=== PATIENT | male | born 1975 | race African-American/Black ===

== ENCOUNTER 2020-05-19 10:14 | Emergency (ER) | payer SELFPAY ==
[~2020-05-19] VITALS: Ht 170 cm; Wt 82.0 kg
[2020-05-19] MEDS ORDERED: NAPR-1071 PO (11:55)
--- NOTE | 2020-05-19 11:55 | ED Upper Extremity ---
General Chief Complaint: Upper Extremity Stated Complaint: R SHOULDER PAIND Nursing Triage Note: PT STATES APPROX 1.5 MONTHS AGO HE WAS PLAYING FOOTBALL. STATES "GOING IN TO TACKLE AND DUDE SHIFTED AND I TOOK A POLE TO THE SHOULDER." PT STATES FULL RANGE OF MOTION OF ARM IS OK JUST HURTS TO MOVE IT AND TURN MY HEAD SOME. Nursing Sepsis Screen: No Definite Risk Source: patient Exam Limitations: no limitations History of Present Illness Date Seen by Provider: May 19, 2020 Time Seen by Provider: 11:51 Initial Comments To ER with c/o right shoulder pain x1.5 months. Has full range of motion. [place] after a football incident when he hit his arm on a pole. Onset: just prior to arrival Severity: moderate Pain/Injury Location: right shoulder Method of Injury: fell Modifying Factors: Worse With Movement Allergies and Home Medications Allergies Coded Allergies: No Known Drug Allergies (Unverified , 05/19/20) Patient Home Medication List Home Medication List Reviewed: Yes Review of Systems Constitutional: see HPI EENTM: see HPI Respiratory: no symptoms reported Genitourinary: no symptoms reported Musculoskeletal: see HPI Skin: no symptoms reported Psychiatric/Neurological: No Symptoms Reported Past Udiqaof-Lylfxl-Yuzirw Hx Patient Social History Alcohol Use: Occasionally Uses Alcohol Beverage of Choice: Beer Recreational Drug Use: Yes Drug of Choice: MARIJUANA Smoking Status: Current Everyday Smoker Type Used: Cigarettes Recent Foreign Travel: No Contact w/Someone Who Travel: No Recent Infectious Disease Expo: No Physical Abuse: No Sexual Abuse: No Mistreated: No Fear: No Physical Exam Vital Signs Vital Signs - First Documented 05/19/20 10:35 Temp 35.8 Pulse 85 Resp 20 B/P (MAP) 131/86 (101) Pulse Ox 96 O2 Delivery Room Air Capillary Refill : Less Than 3 Seconds Height, Weight, BMI Height: '" Weight: lbs. oz. kg; 28.00 BMI Method: General Appearance: WD/WN, no apparent distress Neck: non-tender, full range of motion Respiratory: no respiratory distress, no accessory muscle use Gastrointestinal: normal bowel sounds, non tender, soft Shoulder: normal inspection, non-tender Elbow/Forearm: normal inspection, non-tender Wrist: Yes normal inspection, Yes non-tender Hand: normal inspection, non-tender Neurologic/Psychiatric: alert, normal mood/affect Skin: normal color, warm/dry Progress/Results/Core Measures Results/Orders Vital Signs/I&O 05/19/20 10:35 Temp 35.8 Pulse 85 Resp 20 B/P (MAP) 131/86 (101) Pulse Ox 96 O2 Delivery Room Air Blood Pressure Mean: 101 Departure Impression Primary Impression: Internal derangement of right shoulder Disposition: 01 HOME, SELF-CARE Condition: Stable Departure-Patient Inst. Decision time for Depature: 11:53 Referrals: NO,LOCAL PHYSICIAN (PCP) Primary Care Physician RADHA FARRELL MD, MICHAEL P MD Patient Instructions: Shoulder Pain (DC) Add. Discharge Instructions: 1. Follow-up with your family doctor or one of the orthopedists listed for further evaluation of her shoulder which will include an MRI. In the meantime take anti-inflammatory medicine. All discharge instructions reviewed with patient and/or family. Voiced understanding. Scripts Naproxen (Naprosyn) 500 Mg Tablet 500 MG PO BID PRN for PAIN-MODERATE (5-7), #30 TAB 0 Refills Prov: DEDRA RAMESH APRN 05/19/20 DEDRA RAMESH APRN May 19, 2020 11:55
[2020-05-19] MEDS ORDERED: ORPHENADRINE 60 MG/2 ML (NORFLEX) AMP (ED ONLY) IM ONE (12:00)
[2020-05-19] MEDS ORDERED: KETOROLAC 60 MG/2 ML VIAL IM ONE (12:00)
--- NOTE | 2020-05-19 12:29 | Diagnostic Imaging Report ---
INDICATION: Shoulder pain COMPARISON: None available TECHNIQUE: 3 radiographs of the right shoulder dated 05/19/2020. FINDINGS: Mild degenerative changes of the acromioclavicular joint. No acute fracture or dislocation. No destructive osseous process. The visualized right lung is clear. Glenohumeral joint relationship is well-maintained. IMPRESSION: No acute osseous abnormality with degenerative changes involving the acromioclavicular joint. Dictated by: Dictated on workstation # [id number]
[2020-05-19 12:55] VITALS: BP 131/86
== END 2020-05-19 12:52 | disposition home or self-care (01) ==
LOC: EDUNIT# 10:14 → EDBD 10:17 → ER 10:17
DX: M24.9 Joint derangement, unspecified (principal); F17.210 Nicotine dependence, cigarettes, uncomplicated
CPT/HCPCS: 73030; 96372

== ENCOUNTER → 2021-01-10 | Outpatient (CLI) | payer SELFPAY ==
[~2021-01-10] MED LIST: NAPR-1071 PO
--- NOTE | 2021-01-10 16:01 | Diagnostic Imaging Report ---
PROCEDURE: MRI left upper extremity without contrast. TECHNIQUE: Multiplanar, multisequence non contrast-enhanced MRI of the left upper extremity was accomplished. INDICATION: Wrist pain. History of multiple falls. COMPARISON: None available. FINDINGS: Intrinsic ligaments: Assessment of the intercalated ligaments is suboptimal without intra-articular contrast. Allowing for this, the dorsal band of the scapholunate ligament appears intact. The volar band may be torn. The TFC disc has some mild heterogeneity along its central aspect which could represent a nondisplaced central perforating tear. Lunotriquetral ligament cannot be assessed without intra-articular contrast. Bones: There is patchy bone marrow edema in the lunate and capitate. There is some dorsal subluxation of the lunate resulting in dorsal intercalated segmental instability. Moderate degenerative changes at the capitate lunate articulation. No fracture. Tendons: The flexor and extensor tendons are normal. Soft tissues: There is a multiseptated ganglion cyst located along the volar aspect of the distal radius along its radial margin. This cyst measures 16 x 10 x 11 mm but does not have mass effect on the median nerve. Ulnar nerve is normal in appearance. IMPRESSION: 1. 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 2. Dorsal intercalated segmental instability is likely due to partial tear of the volar component of the scapholunate ligament. The dorsal band of the scapholunate ligament appears to remain intact. 3. Large radial sided ganglion arises from the radiocarpal joint and measures 10 x 11 x 16 mm. Dictated by: Dictated on workstation # [id number]
== END ==
LOC: RAD 13:16
PROVIDERS: ATTEND Pediatrics
DX: M19.032 Primary osteoarthritis, left wrist (principal); M67.432 Ganglion, left wrist
CPT/HCPCS: 73221

== ENCOUNTER 2023-01-20 19:15 | Emergency (ER) | payer OTHER ==
[2023-01-20] MEDS ORDERED: CYCLOBENZAPRINE 10 MG TABLET PO STA (20:18)
[2023-01-20] MEDS ORDERED: NAPROXEN 250 MG TABLET PO STA (20:18)
--- NOTE | 2023-01-20 20:37 | ED Upper Extremity ---
General Chief Complaint: Back Problems Stated Complaint: BACK PAIN Nursing Triage Note: PT AMB TO [facility] WITH CC OF UPPER MIDDLE BACK PAIN X 3 WEEKS. PT STATES PAIN INCREASED TODAY. PT REPORTS WAS SEEN AT [facility] AND RX MUSCLE RELAXER BUT HAS NOT GOTTEN IT FILLED YET. DENIES INJURY (DORENE TIJERINA) History of Present Illness Date Seen by Provider: Jan 20, 2023 Time Seen by Provider: 19:35 Initial Comments 47 year old male presents for right rhomboid pain that has been present for approximately 3 weeks. A couple weeks prior to that he had an injury at work to his right shoulder. He is right-hand dominant. He denies any previous history of injuries to his shoulder or back. He takes ibuprofen 600 mg before work and he was seen at [facility] and prescribed a muscle relaxant but he has not taken it yet. Onset: other Pain/Injury Location: right shoulder, right other (rhomboid) (DORENE TIJERINA) Allergies and Home Medications Allergies Coded Allergies: No Known Drug Allergies (Unverified , 05/19/20) Patient Home Medication List Home Medication List Reviewed: Yes (DORENE TIJERINA) Naproxen (Naprosyn) 500 Mg Tablet, 500 MG PO BID PRN for PAIN-MODERATE (5-7) Prescribed by: DEDRA RAMESH on 05/19/20 1155 Naproxen (Naprosyn) 500 Mg Tablet, 500 MG PO BID Prescribed by: DORENE TIJERINA on 01/20/23 210 Review of Systems Constitutional: no symptoms reported, see HPI Musculoskeletal: see HPI, joint pain (Right shoulder), muscle pain (Right rhomboid) (DORENE TIJERINA) All Other Systems Reviewed Negative Unless Noted: Yes (DORENE TIJERINA) Past Arvpkii-Xppjyg-Ckzdkz Hx Patient Social History Tobacco Use?: Yes Tobacco type used: Cigarettes Smoking Status: Current Everyday Smoker Substance use?: No Alcohol Use?: No Pt feels they are or have been: No (DORENE TIJERINA) Past Medical History Surgery/Hospitalization HX: HTN (DORENE TIJERINA) Family Medical History Reviewed Nursing Family Hx (DORENE TIJERINA) Physical Exam Vital Signs Vital Signs - First Documented 01/20/23 19:24 Temp 36.4 Pulse 92 Resp 18 B/P (MAP) 160/113 (129) Pulse Ox 99 O2 Delivery Room Air (MARIO POWERS MD) Vital Signs Capillary Refill : Less Than 3 Seconds (DORENE TIJERINA) Height, Weight, BMI Height: '" Weight: lbs. oz. kg; BMI Method: General Appearance: WD/WN, no apparent distress Cardiovascular: normal peripheral pulses, regular rate, rhythm Respiratory: chest non-tender, lungs clear, normal breath sounds Shoulder: normal inspection, normal ROM, bone tenderness (AC jt); No limited ROM; pain, soft tissue tenderness (right rhomboid) Elbow/Forearm: normal inspection, non-tender, no evidence of injury, normal ROM, Right Neurologic/Psychiatric: no motor/sensory deficits, alert, normal mood/affect, oriented x 3 Right shoulder normal range of motion. Crepitus with full extension. Negative apprehension and impingement. Pain in rhomboid with range of motion. (DORENE TIJERINA) Progress/Results/Core Measures Results/Orders Vital Signs/I&O 01/20/23 21:12 Pulse 92 Resp 18 B/P (MAP) 160/113 Pulse Ox 99 O2 Delivery Room Air (MARIO POWERS MD) Blood Pressure Mean: 129 Diagnostic Imaging Diagonstic Imaging: Xray Plain Films/CT/US/NM/MRI: other (shoulder) Comments NAME: KARMA PARRY MED REC#: [id number] PT STATUS: REG ER : 1975 PHYSICIAN: DORENE TIJERINA ADMIT DATE: 01/20/23/ER Signed Date of Exam:01/20/23 SHOULDER, RIGHT, 3 VIEWS EXAMINATION: AP, oblique, lateral view of the right shoulder obtained. TECHNIQUE: AP, oblique, lateral view of the right shoulder obtained. HISTORY: Right shoulder pain COMPARISON: None available. FINDINGS: Alignment is normal. No fracture is seen. Joint spaces are normal. IMPRESSION: 1. No fracture. Dictated by: Dictated on workstation # [id number] Dict: 01/20/232104 Trans: 01/20/232104 [facility] [place] [id number] Interpreted by: ROSE TEE DO Electronically signed by: ROSE TEE DO 01/20/232104 Reviewed: Reviewed by Me (DORENE TIJERINA) Departure Impression Primary Impression: Strain of right rhomboid muscle Additional Impression: Right shoulder pain Qualified Codes: M25.511 - Pain in right shoulder Disposition: 01 HOME, SELF-CARE Condition: Improved Departure-Patient Inst. Decision time for Depature: 20:55 (DORENE TIJERINA) Referrals: YASMANY TYLER,LOCAL PHYSICIAN (PCP) Primary Care Physician Patient Instructions: Shoulder Pain (DC), Upper Back Pain (DC) Add. Discharge Instructions: Alternate heat and ice to your right muscle where the pain is occurring. You can use Biofreeze or Orondo balm ointment to the area of pain. Take Naprosyn as prescribed with food. Do not take any Ibuprofen with the Naproxen. You may take Tylenol 650 mg every 8 hours for additional pain relief. Use the Flexeril as prescribed by [facility]. If symptoms are not improving or worsen follow-up with your primary care provider and consider referral to orthopedics. Return to the emergency department for new, urgent healthcare needs. All discharge instructions reviewed with patient and/or family. Voiced understanding. Scripts Naproxen (Naprosyn) 500 Mg Tablet 500 MG PO BID, #60 TAB 0 Refills Prov: DORENE TIJERINA 01/20/23 Work/School Note: Work Release Form Date Seen in the Emergency Department: Jan 20, 2023 Return to Work: Jan 22, 2023 Restrictions: No Restrictions ATTENDING PHYSICIAN NOTE: I was physically present as attending physician in the emergency department during the care of this patient, but I was not directly involved in the decision making or delivery of care for this patient. (MARIO POWERS MD) DORENE TIJERINA Jan 20, 2023 20:36 MARIO POWERS MD Jan 21, 2023 08:13
[2023-01-20] MEDS ORDERED: NAPR-1071 PO (21:06)
--- NOTE | 2023-01-20 21:07 | Diagnostic Imaging Report ---
EXAMINATION: AP, oblique, lateral view of the right shoulder obtained. TECHNIQUE: AP, oblique, lateral view of the right shoulder obtained. HISTORY: Right shoulder pain COMPARISON: None available. FINDINGS: Alignment is normal. No fracture is seen. Joint spaces are normal. IMPRESSION: 1. No fracture. Dictated by: Dictated on workstation # [id number]
[2023-01-20 21:12] VITALS: BP 160/113
== END 2023-01-20 21:12 | disposition home or self-care (01) ==
LOC: EDUNIT# 19:15 → ER 19:19
DX: S46.911A Strain of unspecified muscle, fascia and tendon at shoulder and upper arm level, right arm, initial encounter (principal); F17.210 Nicotine dependence, cigarettes, uncomplicated; X58.XXXA Exposure to other specified factors, initial encounter; Y99.0 Civilian activity done for income or pay
CPT/HCPCS: 73030; 99283